=== PATIENT | female | born 1990 | race Caucasian/White ===

== ENCOUNTER 2023-08-06 04:11 | Emergency (ER) | payer OTHER ==
[~2023-08-06] VITALS: Ht 175.3 cm; Wt 72.2 kg
[2023-08-06 04:36] VITALS: O2SAT 99
[2023-08-06] MEDS: ONDANSETRON HCL 4MG/2ML INJ IV ONE (04:45)
[2023-08-06 05:26] LABS: HEMATOCRIT. 46.7 % (36.0-48.0); HEMOGLOBIN. 15.6 g/dL (12.0-16.0); MEAN CORPUSCULAR HGB CONC 33.5 g/dL (31.0-37.0); MEAN CORPUSCULAR VOLUME 95.7 fL (81.0-99.0); RED BLOOD CELL COUNT 4.88 mill/uL (4.2-5.4); RED CELL DISTRIBUTION WIDTH 13.4 % (11.6-14.6); WHITE BLOOD COUNT 7.2 x1000/uL (4.5-11.0)
[2023-08-06 05:31] LABS: DIFFERENTIAL COMMENT 1
[2023-08-06] MEDS: SODIUM CHLORIDE 0.9% 1,000 ML IV ONE ×2 (05:40→08:47)
[2023-08-06 05:44] LABS: ALANINE AMINOTRANSFERASE 27 IU/L (10-49); ALBUMIN 5.2 g/dL (3.2-4.8); ASPARTATE AMINOTRANSFERASE 43 IU/L (<34); BILIRUBIN TOTAL 1.6 mg/dL (0.1-1.0); CALCIUM 9.7 mg/dL (8.7-10.4); CARBON DIOXIDE 21 mEq/L (21-32); CHLORIDE 106 mEq/L (98-107); CREATININE 1.5 mg/dL (0.6-1.0); GLUCOSE 130 mg/dL (70-105); POTASSIUM 5.1 mEq/L (3.5-5.1); PROTEIN TOTAL 8.3 g/dL (6.0-8.3); SODIUM 137 mEq/L (136-145); UREA NITROGEN BLOOD 14 mg/dL (9-23)
[2023-08-06 05:45] LABS: HCG SCREEN NEGATIVE
[2023-08-06] MEDS: LOPERAMIDE 2MG/15ML UDC PO ONE (05:55)
[2023-08-06] MEDS: ACETAMINOPHEN 325MG TABLET PO ONE (05:56)
[2023-08-06 06:38] LABS: PLATELET ESTIMATE NORMAL
[2023-08-06 06:40] LABS: PLATELET 105 x1000/uL (130-400)
[2023-08-06] MEDS ORDERED: FAMO-135 MT (09:02)
[2023-08-06] MEDS ORDERED: ONDA4TAB50 MT (09:02)
[2023-08-06 09:58] VITALS: BP 107/48; PULSE 79; RESP 16; TEMP 97.8
== END 2023-08-06 10:01 | disposition home or self-care (01) ==
LOC: ER 04:40
DX: K52.9 Noninfective gastroenteritis and colitis, unspecified (principal); K90.41 Non-celiac gluten sensitivity; Z91.011 Allergy to milk products; Z98.890 Other specified postprocedural states
CPT/HCPCS: 80053; 84703; 83690; 85025; 36415; 93005; 96361; 96374; 99284; J2405; J7030; Z7610